=== PATIENT | male | born 1945 | race Caucasian/White ===

== ENCOUNTER 2019-06-20 05:25 | Inpatient (IN) | payer OTHER ==
--- NOTE | 2019-06-07 13:09 | HP ---
PREOPERATIVE HISTORY AND PHYSICAL: DATE OF ADMISSION/SURGERY: 06/20/19 DATE OF OFFICE VISIT: 06/07/19 ATTENDING PHYSICIAN: Dr. Isaiah Fung.* (DICTATED BY CARLA ZUNIGA) SURGERY SCHEDULED: Left total knee arthroplasty. CHIEF COMPLAINT: Left knee pain. HISTORY OF PRESENT ILLNESS: Mr. Nagel is a 73-year-old male with ongoing left knee pain. He has tried physical therapy and uses a regular aspirin twice daily for inflammatory pain. He has difficulty ambulating up and down stairs and can only walk 2 to 3 blocks without needing to rest due to the knee pain. His plain films reveal advanced degenerative changes in the medial compartment. He now elects to proceed with left total knee arthroplasty, which is scheduled with Dr. Fung 06/20/19. PAST MEDICAL HISTORY: Significant for type 2 diabetes mellitus. 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 MEDICATIONS: 1. Metformin 750 mg p.o. b.i.d. 2. Regular strength aspirin 325 p.o. b.i.d. 3. Glucosamine/chondroitin sulfate. 4. Multivitamin. 5. Vitamin D. 6. Atorvastatin. ALLERGIES: No known drug allergies. FAMILY HISTORY: Significant for his father having endocarditis and a stroke. Brother with a history of prostate cancer. SOCIAL HISTORY: The patient lives with his spouse. He works at [employer] in the [place] department. No cigarette/tobacco use. Denies use of alcohol. He is left-hand dominant. REVIEW OF SYSTEMS: The patient denies recent loss of consciousness, lightheadedness, dizziness, shortness of breath, chest pain, palpitations, gastrointestinal, genitourinary problems. There is no history of OH, phlebitis , or pulmonary embolism. PHYSICAL EXAMINATION GENERAL: He is alert and oriented x3, in no acute distress. Pleasant and cooperative. VITAL SIGNS: Height 73.5 inches tall, weight 215, BP 136/78, temperature 98.2. HEENT: PERRLA, EOMI. LUNGS: Clear to auscultation without wheeze. HEART: Regular rate and rhythm. No murmur auscultated. ABDOMEN: Nontender, nondistended. Normoactive bowel sounds x4 quadrants. EXTREMITIES: The left knee shows no open lesions or excoriations. His motion is limited from roughly -3 degrees to 110 degrees. There is no varus or valgus instability. No warmth or erythema. He has tenderness along the medial joint line. His calf is soft and nontender. He has active dorsiflexion of the left ankle. He has a 2+ pedal pulse. DIAGNOSTIC STUDIES: Plain films that were done at his last office visit revealed [id number] medial arthritis of the left knee joint. IMPRESSION: Advanced osteoarthritis of left knee. PLAN: The patient has elected to proceed with left total knee arthroplasty, which is scheduled with Dr. Isaiah Fung on 06/20/19 at [facility]. Risks and benefits of the procedure were fully discussed by Dr. Fung at his office visit today and he elected to proceed. He will discontinue his aspirin 1 week prior to surgery. He will follow up in 10 to 14 days postoperatively. CARAL ZUNIGA [id number]/[facility] #: [id number] LEIGH
[~2019-06-20 05:25] MED LIST: Buffered Lidocaine 1% SYRIN* 1 ML/SYRINGE INTRADERM ONE; Lactated Ringers 1000 ML Bag* 1,000 ML IV SCH; Tranexamic Acid 1,000 MG in NS 0.9% 50 ML* (outpatient use) IV SCH
--- OUTSIDE RECORDS SUMMARY | 2019-06-20 05:28 | XMS REPORT | Continuity of Care Document ---
:1945 External Reference #:[id number] Author Name Isaiah Fung M.D. 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 Medicine Problems Description No Information Available Social History Type Date Description Comments Sex Unknown ETOH Use Denies alcohol use Tobacco Use Start: Unknown Patient has never smoked Smoking Status Reviewed: 05/15/19 Patient has never smoked Exercise Type/Frequency Exercises regularly Allergies, Adverse Reactions, Alerts Description No Known Drug Allergies Medications Active Medications SIG Qnty Indications Ordering Provider Date Metformin HCL take one tablet Unknown 1000mg by mouth twice a Tablets day Aspirin Adult 2 Daily Unknown 325mg Tablets Immunizations Description No Information Available Vital Signs Date Vital Result Comment 05/15/2019 3:28pm Height 73.5 inches 6'1.50" Weight 215.00 lb Heart Rate 78 /min Body Temperature 98.3 F O2 % BldC Oximetry 97 % BMI (Body Mass Index) 28.0 kg/m2 Results Description No Information Available Procedures Description No Information Available Medical Devices Description No Information Available Encounters Type Date Location Provider Dx Diagnosis Office Visit 05/15/2019 Orthopedic Isaiah Fung M.D. M17.12 Unilateral primary 3[facility], left knee Assessments Date Code Description Provider 05/15/2019 M17.12 Unilateral primary osteoarthritis, left knee Isaiah Fung M.D. Plan of Treatment Future Appointment(s):06/07/2019 10:45 am - Isaiah Fung M.D. at [facility]06/20/2019 7:30 am - Isaiah Fung M.D. at [facility]Mary Carmen05/15/2019 - Isaiah Fung M.D.M17.12 Unilateral primary osteoarthritis, left knee Functional Status Description No Information Available Mental Status Description No Information Available Referrals Description No Information Available
--- OUTSIDE RECORDS SUMMARY | 2019-06-20 05:28 | XMS REPORT | Continuity of Care Document ---
:1945 External Reference #:[id number] Author Name Tino Goodrich M.D. Address [address] [facility] [place] [address] Care Team Providers Name Role Phone Michelle Sutton - Pediatric Care Team Information Bereavement Counselor Unavailable Dermatology Marilia Cavazos M.D. - Family Care Team Information Bereavement Counselor Medicine Problems Active Problems Provider Date Type 2 diabetes mellitus Onset: Hypercholesterolemia Onset: History of malignant neoplasm of prostate Onset: Malignant melanoma of skin Onset: Nuclear senile cataract Tino Goodrich M.D. Onset: 05/14/2015 Vitreous degeneration Tino Goodrich M.D. Onset: 05/14/2015 Tinnitus Onset: Social History Type Date Description Comments Sex Unknown ETOH Use Occasionally consumes alcohol Recreational Drug Use Denies Drug Use Tobacco Use Start: Unknown Patient has never smoked Smoking Status Reviewed: 06/06/19 Patient has never smoked Allergies, Adverse Reactions, Alerts Active Allergies Reaction Severity Comments Date NKDA 05/14/2015 Hazelnuts 05/24/2018 Medications Active Medications SIG Qnty Indications Ordering Provider Date Atorvastatin Calcium Anayeli Nolasco M.D. 20mg Tablets Metformin HCL 1500 mg per day Unknown 1000mg Tablets SF 5000 Plus Unknown 1.1% Cream Aspirin 2 tabs by mouth Unknown 325mg Tablets every day Lutein Tino Goodrich 40mg Capsules M.DMary Carmen Multiple Vitamins Unknown Tablets Vitamin D3 Unknown 1000Unit Capsules Glucosamine Chondroitin Unknown Complex Capsules Lipoflavonoid Unknown Tablets Immunizations Description No Information Available Vital Signs Description No Information Available Results Description No Information Available Procedures Description No Information Available Medical Devices Description No Information Available Encounters Description No Information Available Assessments Date Code Description Provider 06/06/2019 E11.9 Type 2 diabetes mellitus without Tino Goodrich M.D. complications 06/06/2019 H25.13 Age-related nuclear cataract, bilateral Tino Goodrich M.D. 06/06/2019 H43.813 Vitreous degeneration, bilateral Tino Goodrich M.D. Plan of Treatment Future Appointment(s):06/10/2020 1:45 pm - Tino Goodrich M.D. at Tino Goodrich MD, 06/06/2019 - Tino Goodrich M.D.E11.9 Type 2 diabetes mellitus without complicationsComments:Smoking can increase the risk of developing or worsening any eye related disease, as well as affect your overall health. If you are a smoker, we strongly recommend that you quit.If you are not a smoker, we strongly recommend that you do not start. You have diabetes. I do not detect any changes in both of your retinas from diabetes at this time. Proper control of your diabetes is important for the health of your eyes. Changes in your eyes from diabetes can happen without symptoms, so it is important that you have your eyes examined. Dr. Goodrich has sent a report to your primary care doctor, lettingthem know there is no damage from the Diabetes in your eyes.Follow up:1 Year Follow Up You can expect to have your eyes dilated at your next visit. If Dr. Goodrich orders any additional testing, it may require extra time. We recommend that you bring sunglasses, as dilationdrops often make you light sensitive until they wear off. We always recommend you bring someone to drive you home if you are uncomfortable driving with your eyes dilated. If you have any questions before your next visit, feel free to call our office at .H25.13 Age-related nuclear cataract, bilateralComments:You have been diagnosed with cataracts. If you are happy with your vision as it is now, then we willsee you at your next scheduled appointment. If you feel like your vision is getting worse before your scheduled appointment, please call Lily at [phone].Z43.524 Vitreous degeneration, bilateralComments:You have a Posterior Vitreous Detachment. If you have any changes in your floaters or flashing lights, please contact this office. Functional Status Description No Information Available Mental Status Description No Information Available Referrals Description No Information Available
[2019-06-20] MEDS ORDERED: ceFAZolin 2 GM in NS PREMIX(*) 2 GM/100 ML BAG IVPB ONE (06:33)
[2019-06-20] MEDS ORDERED: Buffered Lidocaine 1% SYRIN* 1 ML/SYRINGE INTRADERM ONE (06:33)
[2019-06-20] MEDS ORDERED: ROPIVACAINE 5 MG/ML 30 ML BTL (0.5%) ONE (07:24)
[2019-06-20] MEDS ORDERED: fentaNYL* 50 MCG/ML 2 ML VIAL (100 MCG VIAL) ONE (07:29)
[2019-06-20] MEDS ORDERED: Midazolam* 1 MG/ML 5 ML VIAL (5 MG) ONE (07:29)
[2019-06-20] MEDS ORDERED: Bupivacaine 0.5% W/EPI SDV* 10 ML VIAL INJ ONE (07:41)
[2019-06-20] MEDS ORDERED: Bupivacaine 0.5% SDV PF* 30ML VIAL ONE (08:07)
[2019-06-20] MEDS ORDERED: Propofol* 10 MG/ML 20 ML BTL ONE ×2 (08:07→09:19)
[2019-06-20] MEDS ORDERED: Ondansetron INJ* 2 MG/ML VIAL IV PRN ×2 (10:45→10:49)
[2019-06-20] MEDS ORDERED: Acetaminophen TAB* 325 MG PO PRN (10:45)
[2019-06-20] MEDS ORDERED: HYDROcodone/ACETAMIN 5-325 MG* 1 TAB PO PRN (10:45)
[2019-06-20] MEDS ORDERED: HYDROmorphone INJ1* 1 MG/ML SYRINGE IV PRN (10:45)
[2019-06-20] MEDS ORDERED: Naloxone* 0.4 MG/ML 1 ML VIAL IV PRN (10:45)
[2019-06-20] MEDS ORDERED: Magnesium Hydroxide LIQ* 30 ML UDC PO PRN (10:49)
[2019-06-20] MEDS ORDERED: Ondansetron ODT TAB* 4 MG PO PRN (10:49)
[2019-06-20] MEDS ORDERED: Morphine INJ* 2 MG/ML 1 ML SYRINGE (TWO MG - NEW SYRINGE VERSION) IV PRN (10:49)
[2019-06-20] MEDS ORDERED: diPHENhydraMINE IV* 50 MG/ML 1 ml VIAL (BENADRYL) IV PRN (10:49)
[2019-06-20] MEDS ORDERED: diPHENhydraMINE PO* 25 MG PO PRN (10:49)
[2019-06-20] MEDS ORDERED: traMADol TAB* 50 MG PO SCH (11:00)
[2019-06-20] MEDS ORDERED: Dextrose 50% VIAL 50 ml IV PUSH PRN (11:02)
[2019-06-20] MEDS ORDERED: Acetaminophen TAB* 325 MG ONE (12:30)
[2019-06-20] MEDS ORDERED: traMADol TAB* 50 MG ONE (12:30)
[2019-06-20] MEDS: Lactated Ringers 1000 ML Bag* 1,000 ML IV SCH ×2 (13:03→23:03)
--- NOTE | 2019-06-20 14:22 | CONS ---
CC: Dr. Fung; Dr. Nolasco * CONSULTATION REPORT: DATE OF CONSULT: 06/20/19 PRIMARY CARE PROVIDER: Dr. Nolasco. ORTHOPEDIC SURGEON: Dr. Fung. REASON FOR CONSULTATION: Diabetic management in patient status post left total knee replacement. CHIEF COMPLAINT: Left knee pain. HISTORY OF PRESENT ILLNESS: Levi Nagel is a 74-year-old male with history of diabetes, controlled on metformin at a low dose for the past 3 years, who is status post elective left knee replacement surgery by Dr. Fung. Consultation was requested from the orthopedic service for Medicine to follow on the patient' s diabetic management. Currently, the patient is seen in the postoperative unit, feels well. His spinal anesthesia is slowly wearing down, but he still feels numbness in bilateral lower extremities. PAST MEDICAL HISTORY: 1. History of diabetes type 2, noninsulin dependent. 2. History of dyslipidemia. 3. History of left wrist melanoma excision in 2012. 4. History of robotic prostatectomy in 2007 with subsequent postoperative hernia repair in the same year. 5. Basal cell carcinoma in the past. 6. History of gallstone pancreatitis, status post cholecystectomy in the past. MEDICATIONS AT HOME: Include: 1. Metformin 750 mg b.i.d. 2. Multivitamin 1 tablet daily. 3. Lutein 40 mg daily. 4. Lipoflavonoid 2 tablets daily. 5. Glucosamine 2 capsules daily. 6. Vitamin D3 1000 units daily. 7. Lipitor 20 mg daily. 8. Aspirin 650 mg at bedtime. ALLERGIES: Hazelnuts. FAMILY HISTORY: Positive for father who in his 70s secondary to heart disease. Two children with history of schizophrenia. 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 He is and his is his surrogate. He denies any tobacco, alcohol, or drug use. REVIEW OF SYSTEMS: Please see history of present illness. All the remaining 12 systems were reviewed with the patient and were otherwise negative. PHYSICAL EXAM: Blood pressure of 119/62, heart rate of 51 and regular, respiratory rate 16, oxygen saturation 99% on 4 L of oxygen via nasal cannula, temperature 96.9. General: The patient is a very pleasant 74-year-old male who is in no acute distress. Alert, awake and oriented x3. HEENT: Head: Atraumatic, normocephalic. Eyes: Pupils are equal and reactive to light and accommodation. Oropharynx is clear. Mucosa moist. Neck: Supple. No JVD. No bruits bilaterally. Cardiovascular: Regular rate and rhythm. No murmur. Respiratory: Clear to auscultation bilaterally. Abdomen: Soft, nontender. Bowel sounds are present in all 4 quadrants. Extremities: There is no edema. Pulses are +2 bilaterally. No clubbing or cyanosis. The left knee is wrapped in postoperative dressing in place; they were not unwrapped during the evaluation. Neurologically, cranial nerves II through XII grossly intact. Motor strength is 5/5 bilaterally. Sensation is diminished in bilateral lower extremities after spinal anesthesia. DIAGNOSTIC STUDIES/LAB DATA: Laboratory Data: None at admission. ASSESSMENT AND PLAN: 1. In regards to the patient's postoperative management of this left knee surgery, I will defer that to Dr. Fung. He was already placed on Eliquis for DVT prophylaxis after orthopedic surgery. 2. In regards to the patient's diabetic management, his hemoglobin A1c was noted to be 6.6 in December 2018. It appears that the patient had been in very good control over the past 3 years. Metformin is going to be held while the patient is hospitalized. The patient is going to be placed on insulin sliding scale. He can be placed back on his metformin at discharge. 3. For DVT prophylaxis as mentioned above, Eliquis is going to be continued. 4. The patient's code status is full. His surrogate is his . Thank you very much for allowing our service to see your patient in consultation. We will see the patient on daily basis. TIME SPENT: Approximately 55 minutes were spent in the patient's consultation. [id number]/[facility] #: [id number] LEIGH
[2019-06-20] MEDS: Insulin LISPRO* 1 UNITS UNIT SUBCUT SCH ×3 (14:37→21:47)
[2019-06-20] MEDS: Acetaminophen TAB* 325 MG PO SCH ×2 (14:39→21:48)
[2019-06-20] MEDS: oxyCODONE TAB* 5 MG TAB PO PRN ×3 (14:41→23:03)
--- NOTE | 2019-06-20 15:30 | OP ---
CC: Dr. Nolasco * DATE OF OPERATION: 06/20/19 - ROOM #341 DATE OF : 45 SURGICAL CARE: Left knee. SURGEON: Isaiah Fung MD HARDWARE TEST ENGINEER: CARLA Khan PROFESSOR COMPUTER SCIENCE: Teresa Mejia, certified pharmacy tech. ANESTHESIOLOGIST: Dr. Arciniega. ANESTHESIA: Spinal and IV sedation and left adductor canal block PRE-OP DIAGNOSIS: Severe arthritis of the left knee especially the medial compartment with varus malalignment. POST-OP DIAGNOSIS: Severe arthritis of the left knee especially the medial compartment with varus malalignment. OPERATIVE PROCEDURE: Left total knee replacement. COMPONENTS: Tish Persona knee was utilized posterior stabilized type with a size 9 femur, a 35 patella, and an F tibia with a 10 articular surface. COMPLICATIONS: There were no complications. DRAINS: There were no drains. BLOOD LOSS: 200 mL. REPLACEMENT: Crystalloid fluids. The patient got tranexamic acid 1 g at the start of the case intravenously and perioperative prophylactic antibiotics as well. INDICATIONS: Severe arthritis of the knee. He has had increasing pain. There has been some increasing deformity and over the past year, his functioning has progressed to the point where he did not want to continue to live with this situation with limited walking and so much difficulty on stairs. DESCRIPTION OF PROCEDURE: The patient was brought to the operating room and placed on the operating room table in supine position following the administration of the anesthetic. The patient was returned to the supine position. A Cline catheter was inserted. The left proximal thigh was wrapped with a tourniquet and sealed off. The left leg was then given a preliminary chlorhexidine prep and a formal ChloraPrep from the tourniquet to the tips of the toes. After prepping, draping, and sealing off, we did our universal protocol timeout confirming Levi Nagel and the plan for left total knee replacement. We all agreed and we proceeded. The surgical care was done without the tourniquet until we got to the clean up and cementing phase of the case. The hip and left knee were acutely flexed with the left foot on a padded foot piece for most of the case. The skin incision went from 1 fingerbreadth proximal to the superior pole of the patella down to the medial aspect of the tibial tubercle. The knee was entered medial parapatellar. The quad tendon was divided at the junction of the rectus femoris and the vastus medialis, staying as close to vastus medialis muscle as possible. We had clear, goldish synovial fluid; it was not abundant. The anteromedial soft tissues on the tibia were elevated subperiosteally, going around to the deep MCL and then to the posteromedial corner of the knee. The remains of the anterior horn medial meniscus were carefully excised. The MCL was carefully preserved throughout the case. The patient had complete eburnation of bone, medial femoral condyle, medial tibial plateau, some translocation of the knee. There were degenerative changes laterally and patella as well. The patella was made so that it could be everted. The peripatellar synovectomy was completed including a lot of the infrapatellar fat pad. The intercondylar osteophytes were excised. The ACL and PCL were uplifted from their femoral origins. The tibia was made, so it could be subluxated forward from under the femur and the PCL was carefully excised. Great care was taken while working posteriorly, especially posterior to the PCL. Lateral meniscus was then carefully excised. The distal anterior femur was exposed subperiosteally for referencing and measuring. At this point , we had nice exposure. The proximal tibial cut was made first. Our goal with this cut was to have a tibial surface that would have a slight posterior slope and be perpendicular to the long axis of the tibia correcting the varus. The goal was to remove a few millimeters medially and 10 to 12 mm laterally. After this cut was completed, then the femoral intramedullary drill was utilized. The patient did have some flexion contracture, so the femoral cutting guide was placed on 1 and 6 degrees of valgus were chosen. The distal femoral cuts were completed and at this stage, we had nice ligamentous balance for a 10 block in extension. The femur was measured for a size 9. The anterior, posterior, and chamfering cuts were completed. We then finished removal of the medial meniscus carefully preserving the MCL, posterior osteophyte on the medial femoral condyle, the lateral meniscus and the PCL. At this stage, we had nice ligamentous balance in flexion, 90 degrees of flexion with a 10 mm block as well. The femur was then completed with the intercondylar cutout and the femur was then cleaned x6 with pulse saline, suctioned empty, and a femoral plug was inserted. The tibia was then completed for a size F. The knee was then articulated and extended with a size F tibia, 10 articular surface, and the 9 femur with full knee extension, stable ligaments in extension, stable ligaments in 90 degrees of flexion. The patella was then cut flat, a 35 was chosen, three drill holes were made, and these were undercut for optimal cement interdigitation and a lateral release was not necessary. The leg was then exsanguinated with tourniquet. The tourniquet elevated to 275. The knee was then cleaned entirely in extension with pulsed saline irritation. Then the knee was cleaned in flexion all the bony surfaces with pulse saline. Each surface was dried. The cement was mixed and the components were cemented into position, patella, followed by tibia, followed by femur. Each was impacted , excess cement was removed, and the knee was articulated and extended during the final hardening. The tourniquet was then deflated. The pericapsular tissues were infiltrated with Marcaine with epinephrine postero-medially, medially, laterally. The knee was checked for any loose cement especially posteriorly and careful hemostasis was checked and achieved. We did not think drains were necessary. The knee was then closed, quadriceps tendon closed with interrupted #1 Vicryls in figure- of-eight fashion, the medial retinaculum #1, and then 0 Vicryls more distally. The deep fascia closed was interrupted with 0 Vicryl, the superficial subcu closed with 0 and then 3-0 Vicryls and then chris on the skin. We irrigated during the closure several times with pulse saline. After closure with chris , the skin was washed and dried and covered with Betadine soaked release followed by sterile gauze, sterile Webril, cryotherapy cuff, ABD pads, and then a 6-inch Albino bandage loosely applied. The patient was returned to the recovery room in stable and satisfactory condition, having tolerated the procedure very well. [id number]/[facility] #: [id number] LEIGH
--- NOTE | 2019-06-20 16:31 | PN ---
Progress Note - Progress Note Date of Service: 06/20/19 Note: Pt seen at bedside POD 0 sp LTK. He feels well without complaints, pain is well controlled. Denies CP, SOB, dizziness, nausea. Dressing CDI, cryo cuff in use, DF/ PF intact, Dp2+, sensation intact to light touch distally. He will start eliquis 2.5 mg po BID x 30 days post op tomorrow for DVT prophy, SCDs in place and early mobilization. Hosp mgmt DM2
[2019-06-20] MEDS: ceFAZolin 1 GM ADVAN(*) 1 GM in NS 0.9% 50 ML* 50 ML IVPB SCH (17:06)
[2019-06-20] MEDS: traMADol TAB* 50 MG PO SCH (18:41)
[2019-06-20] MEDS: Atorvastatin* 20 MG TAB PO SCH (18:48)
[2019-06-20] MEDS: Cyclobenzaprine TAB* 10 MG PO PRN (21:09)
[2019-06-20] MEDS: Docusate CAP* 100 MG PO SCH (21:46)
[2019-06-20] MEDS: Magnesium Hydroxide LIQ* 30 ML UDC PO SCH (21:46)
[2019-06-21] MEDS: traMADol TAB* 50 MG PO SCH ×4 (00:11→18:42)
[2019-06-21] MEDS: ceFAZolin 1 GM ADVAN(*) 1 GM in NS 0.9% 50 ML* 50 ML IVPB SCH ×2 (00:12→09:11)
[2019-06-21] MEDS: oxyCODONE TAB* 5 MG TAB PO PRN ×2 (04:06→22:46)
[2019-06-21 05:45] LABS: Hematocrit 36 % (42-52); Hemoglobin 12.7 g/dL (14.0-18.0); Platelet Count 141 10^3/uL (150-450)
[2019-06-21 06:13] LABS: BUN/Creatinine Ratio 15.1 (8-20); Calcium 7.9 mg/dL (8.6-10.3); EGFR African American 127.1 (>60); Potassium 4.1 mmol/L (3.5-5.0)
[2019-06-21] MEDS: Cyclobenzaprine TAB* 10 MG PO PRN (06:15)
[2019-06-21] MEDS: Acetaminophen TAB* 325 MG PO SCH ×3 (06:26→22:47)
--- NOTE | 2019-06-21 07:12 | PN ---
Progress Note - Progress Note Date of Service: 06/21/19 Note: POD #1 VSStable. X-ray left knee post op all satisfactory. Hct 36%. Awake, alert, cooperative and breathing easily. Left knee dressing is dry. Left PT pulse is 2 plus. Lifts left leg and moves left hip, knee, ankle and toes all directions. Surgery area care discussed. Imp: Stable. Plans: TKR rehab protocol and home when goals are reached.
[2019-06-21] MEDS: Cholecalciferol TAB* 1000 UNITS PO SCH (09:09)
[2019-06-21] MEDS: Vitamin THERAPEUTIC TAB PO SCH (09:09)
[2019-06-21] MEDS: Magnesium Hydroxide LIQ* 30 ML UDC PO SCH ×2 (09:10→22:45)
[2019-06-21] MEDS: Insulin LISPRO* 1 UNITS UNIT SUBCUT SCH ×4 (09:10→22:46)
[2019-06-21] MEDS: Docusate CAP* 100 MG PO SCH ×2 (09:10→22:45)
[2019-06-21] MEDS: Apixaban* 2.5 MG TAB PO SCH ×2 (09:10→22:46)
--- NOTE | 2019-06-21 13:58 | PN ---
Subjective Date of Service: 06/21/19 Interval History: Pt had ambulated this AM, post op pain is "as expected" Objective Active Medications: Acetaminophen (Tylenol Tab*) 975 mg PO Q8H [facility] Last Admin: 06/21/19 06:26 Dose: Not Given Apixaban (Eliquis*) 2.5 mg PO BID [facility] Last Admin: 06/21/19 09:10 Dose: 2.5 mg Atorvastatin Calcium (Lipitor*) 20 mg PO QPM [facility] Last Admin: 06/20/19 18:48 Dose: 20 mg Bisacodyl (Dulcolax Supp*) 10 mg LA DAILY PRN PRN Reason: CONSTIPATION Cholecalciferol (Vitamin D Tab*) 1,000 units PO QAM [facility] Last Admin: 06/21/19 09:09 Dose: 1,000 units Cyclobenzaprine HCl (Flexeril Tab*) 10 mg PO Q6H PRN PRN Reason: SPASMS Last Admin: 06/21/19 06:15 Dose: 10 mg Dextrose (Dextrose 50% Vial 50 Ml*) 25 ml IV PUSH .FOR FS < 60 - SS PRN PRN Reason: FS < 60 Diphenhydramine HCl (Benadryl Iv*) 25 mg IV Q6H PRN PRN Reason: PRURITIS Diphenhydramine HCl (Benadryl Po*) 25 mg PO Q6H PRN PRN Reason: PRURITIS Docusate Sodium (Colace Cap*) 100 mg PO BID [facility] Last Admin: 06/21/19 09:10 Dose: 100 mg Lactated Ringer's (Lactated Ringers 1000 Ml Bag*) 1,000 mls @ 100 mls/hr IV PER RATE [facility] Last Admin: 06/20/19 23:03 Dose: 100 mls/hr Insulin Human Lispro (Humalog*) 0 units SUBCUT ACHS [facility]; Protocol Last Admin: 06/21/19 09:10 Dose: 2 unit Lactulose (Lactulose*) 30 ml PO BID PRN PRN Reason: CONSTIPATION Magnesium Hydroxide (Milk Of Magnesia Liq*) 30 ml PO BID [facility] Last Admin: 06/21/19 09:10 Dose: 30 ml Magnesium Hydroxide (Milk Of Magnesia Liq*) 30 ml PO Q6H PRN PRN Reason: CONSTIPATION Morphine Sulfate (Morphine Inj (Syringe))*) 2 mg IV Q4H PRN PRN Reason: Pain - Unrelieved Multivitamins (Theragran Tab*) 1 tab PO DAILY [facility] Last Admin: 06/21/19 09:09 Dose: 1 tab Ondansetron HCl (Zofran Inj*) 4 mg IV Q6H PRN PRN Reason: NAUSEA Ondansetron HCl (Zofran Odt Tab*) 4 mg PO Q6H PRN PRN Reason: NAUSEA Oxycodone HCl (Roxycodone Tab*) 10 mg PO Q4H PRN PRN Reason: Pain - Breakthrough Last Admin: 06/21/19 04:06 Dose: 10 mg Tramadol HCl (Ultram*) 50 mg PO 0030,0630,1230,1830 [facility] Last Admin: 06/21/19 11:56 Dose: 50 mg Vital Signs - 8 hr 06/21/19 06/21/19 06/21/19 05:59 06:15 06:26 Temperature Pulse Rate Respiratory 17 17 Rate Blood Pressure (mmHg) O2 Sat by Pulse 95 Oximetry 06/21/19 06/21/19 06/21/19 07:51 08:15 09:00 Temperature 98.7 F Pulse Rate 67 Respiratory 12 16 16 Rate Blood Pressure 111/58 (mmHg) O2 Sat by Pulse 96 96 Oximetry 06/21/19 06/21/19 11:06 11:56 Temperature 99.8 F Pulse Rate 65 Respiratory 14 16 Rate Blood Pressure 129/57 (mmHg) O2 Sat by Pulse 96 Oximetry Oxygen Devices in Use Now: None Appearance: 74 yo M in nAD, AAOx3 Eyes: No Scleral Icterus, PERRLA Ears/Nose/Mouth/Throat: NL Teeth, Lips, Gums, Mucous Membranes Moist Neck: NL Appearance and Movements; NL JVP, Trachea Midline Respiratory: Symmetrical Chest Expansion and Respiratory Effort Cardiovascular: NL Sounds; No Murmurs; No JVD, RRR Abdominal: NL Sounds; No Tenderness; No Distention Lymphatic: No Cervical Adenopathy Extremities: No Clubbing, Cyanosis, - - left knee in post op dressings, not unwrapped Skin: No Nodules or Sclerosis Neurological: Alert and Oriented x 3, NL Muscle Strength and Tone Result Diagrams: 06/21/19 04:59 06/21/19 04:59 Assess/Plan/Problems-Billing Assessment: 74 yo M with h/o DM2, s/p elective left knee arthoplasty on 06/20/19 - Patient Problems (1) S/P total knee arthroplasty Comment: as per Dr. Fung (2) DM2 (diabetes mellitus, type 2) Comment: cont ISS, hold metformin for now, OK to restart it at discharge (3) DVT prophylaxis Comment: eliquis Status and Disposition: medicine consult
--- NOTE | 2019-06-21 14:15 | PN ---
Progress Note - Progress Note Date of Service: 06/21/19 SOAP: Subjective: Pt is doing well. Pain is controlled. Denies F/C, CP/SOB or calf pain. Reports fatigue after PT. Objective: PE- 74 y/o WDWN M NAD, A&Ox3 LLE- dressing changed, inc c/d/i with no sign of infection, calf soft NT, +DF/ PF ankle, +2 Dp pulse, SILT distally Vital Signs Temp Pulse Resp BP Pulse Ox 99.8 F 65 16 129/57 96 06/21/19 11:06 06/21/19 11:06 06/21/19 11:56 06/21/19 11:06 06/21/19 11:06 Laboratory Results - last 24 hr 06/20/19 06/20/19 06/21/19 17:03 20:59 04:59 Hgb 12.7 L Hct 36 L Plt Count 141 L MPV 8.0 Sodium Potassium Chloride Carbon Dioxide Anion Gap BUN Creatinine Est GFR ( Amer) Est GFR (Non-Af Amer) BUN/Creatinine Ratio Glucose POC Glucose (mg/dL) 199 H 231 H Calcium 06/21/19 06/21/19 04:59 11:56 Hgb Hct Plt Count MPV Sodium 137 Potassium 4.1 Chloride 105 Carbon Dioxide 29 Anion Gap 3 BUN 11 Creatinine 0.73 Est GFR ( Amer) 127.1 Est GFR (Non-Af Amer) 105.0 BUN/Creatinine Ratio 15.1 Glucose 156 H POC Glucose (mg/dL) 168 H Calcium 7.9 L Assessment: POD 1 S/P Left total knee replacement Plan: PT/OT- WBAT Cont tramadol and flexaril for pain Eliquis for dvt prophylaxis DC to home with outpatient PT tonight or tomorrow morning F/U with Dr. Fung 4-6 weeks post op
[2019-06-21] MEDS: Atorvastatin* 20 MG TAB PO SCH (17:42)
[2019-06-22] MEDS: traMADol TAB* 50 MG PO SCH ×3 (00:24→12:12)
[2019-06-22] MEDS: Acetaminophen TAB* 325 MG PO SCH ×2 (05:50→12:05)
[2019-06-22 07:15] LABS: Hematocrit 36 % (42-52); Hemoglobin 12.8 g/dL (14.0-18.0); Mean Platelet Volume 8.2 fL (7.4-10.4); Platelet Count 125 10^3/uL (150-450)
[2019-06-22] MEDS: oxyCODONE TAB* 5 MG TAB PO PRN (07:53)
[2019-06-22] MEDS: Apixaban* 2.5 MG TAB PO SCH (08:05)
[2019-06-22] MEDS: Insulin LISPRO* 1 UNITS UNIT SUBCUT SCH ×2 (08:05→12:12)
[2019-06-22] MEDS: Vitamin THERAPEUTIC TAB PO SCH (08:05)
[2019-06-22] MEDS: Docusate CAP* 100 MG PO SCH (08:05)
[2019-06-22] MEDS: Cholecalciferol TAB* 1000 UNITS PO SCH (08:05)
[2019-06-22] MEDS: Magnesium Hydroxide LIQ* 30 ML UDC PO SCH (08:07)
--- NOTE | 2019-06-22 09:14 | PN ---
Progress Note - Progress Note Date of Service: 06/22/19 Note: POD #2 100.1 temp. VSStable Making progress in PT. Left knee flexing 80 degrees. Left knee surgery checked by CARLA Carson and swelling, some discoloration , dry. All redressed. Awake, alert, breathing easily. Hct is 36 % again. Stable and home today.
[2019-06-22] MEDS ORDERED: Bisacodyl SUPP* 10 MG SUPP PR PRN (10:50)
[2019-06-22 11:44] VITALS: BP 154/74
--- NOTE | 2019-06-22 12:46 | DS ---
Orthopedic Discharge Summary - Discharge Summary Date of Admission:06/20/19 Date of Discharge: 06/22/2019 Date of Surgery: 06/20/2019 Attending Orthopedic Provider: Dr. Fung Pre-operative Diagnosis: Left knee osteoarthritis Operative Procedure: Left total knee arthroplasty Disposition of Patient: Home Condition of Patient: Good History: AMARIS HALE is a 74 year old M with years of increasingly severe left knee pain. Patient has failed conservative management and has elected to undergo a left total knee replacement. Hospital Course: AMARIS was admitted to [facility] on 06/20/19. Patient underwent a left total knee arthroplasty without complication followed by a brief recovery in PACU and transfer to the Short Stay Surgical Unit in stable condition. Our hospitalist service, physical therapy and occupational therapy also participated in this patients care. Post-op day 1: patient was alert and in no acute distress. Dressing was clean, dry and intact. Operative extremity dorsiflexion and plantarflexion intact, sensation intact to light touch distally, DP2+. Post-op day two: dressing was changed, incision was clean , dry and intact. Patient was deemed to be medically and orthopedically stable for discharge. Physical therapy goals were met. Home Medications Medication Instructions Recorded Confirmed Type Lutein 40 mg PO QAM 09/21/17 06/20/19 History Atorvastatin* [Lipitor 20 MG*] 20 mg PO QPM 06/07/19 06/20/19 History Cholecalciferol TAB* [Vitamin D 1,000 unit PO QAM 06/07/19 06/20/19 History TAB*] Glucosam/Chondr/Collagn/Hyalur 2 cap PO QAM 06/07/19 06/20/19 History [Glucosamine & Chondroitin Cap] Lipo Flavanoid 2 tab PO QAM 06/07/19 06/20/19 History Multivit-Min/FA/Lycopen/Lutein 1 each PO QAM 06/07/19 06/20/19 History [Centrum Silver Men Tablet] metFORMIN* [Glucophage 500 MG TAB 750 mg PO BID 06/07/19 06/20/19 History *] Acetaminophen TAB* [Tylenol TAB*] 975 mg PO Q8H tab 06/21/19 Rx Apixaban* [Eliquis*] 2.5 mg PO BID tab 06/21/19 Rx Cyclobenzaprine TAB* [Flexeril 10 10 mg PO Q6H PRN tab 06/21/19 Rx MG TAB*] Docusate CAP* [Colace Cap*] 100 mg PO TID cap 06/21/19 Rx traMADol TAB* [Ultram*] 50 mg PO 0030,0630,1230,1830 tab 06/21/19 Rx MDD 8 DISCHARGE INSTRUCTIONS: - Weight Bearing as tolerated - Continue physical therapy and occupational therapy exercises as shown. Wound Care: OK to shower, no bathing/ swimming/ submerging wound. Use gentle soap, pat dry. Cover with antibiotic ointment, gauze, SYLVAIN wrap. Call Orthopedic office for increased drainage, redness, increased pain, or fever. Go to ER with shortness of breath or chest pain. - Diet: Regular diet, increase fluids and fiber to prevent constipation. Continue to use stool softeners, call office if no bowel motion within 48 hours. Colace 100 mg take 1 tab three times a day as needed for constipation - Visiting home nurse to remove chris in 10-12 days and do wound checks. - Eliquis 2.5 mg take 1 tab every 12 hours x 30 days post op DO NOT take aspirin while on eliquis - Pain control: Tramadol 50 mg. Take 1 or 2 tabs every 6 hours for pain control as needed. maximum of 8 tabs per day. Take Tylenol 500 mg 2 tabs every 6 hours as needed for pain. maximum daily dose 4000 mg Cyclobenzaprine 10 mg take 1 every 8 hours as needed pain/muscle spasms - Antibiotics required prior to any dental work. FOLLOW UP: Follow up with Dr. Fung Within 4-6 weeks for your first post- operative appointment, sooner if you have any concerns. Call for appointment Please call our office with any questions or concerns ([phone]) Rx to [facility] [place] on 06/21
--- NOTE | 2019-06-28 11:05 | OP ---
OPERATIVE NOTE: ADDENDUM: In addition to the other anesthetic already described, the patient had a left adductor can al nerve block as part of his left knee anesthesia. [id number]/[facility] #: [id number]
== END 2019-06-22 14:57 | disposition home or self-care (01) | DRG 470 ==
LOC: AA 05:25 → SSU 10:50
PROVIDERS: ADMIT Family Medicine; ATTEND Orthopaedic Surgery
PROC: 0SRD0J9 Replacement of Left Knee Joint with Synthetic Substitute, Cemented, Open Approach (ICD-10-PCS; principal; 2019-06-20 07:30)
DX: M17.12 Unilateral primary osteoarthritis, left knee (principal); E11.9 Type 2 diabetes mellitus without complications; E78.00 Pure hypercholesterolemia, unspecified; E66.9 Obesity, unspecified; E78.5 Hyperlipidemia, unspecified; M21.162 Varus deformity, not elsewhere classified, left knee; Z82.3 Family history of stroke; Z82.49 Family history of ischemic heart disease and other diseases of the circulatory system; Z80.42 Family history of malignant neoplasm of prostate; Z85.820 Personal history of malignant melanoma of skin; Z85.46 Personal history of malignant neoplasm of prostate; Z90.49 Acquired absence of other specified parts of digestive tract; Z90.79 Acquired absence of other genital organ(s); Z68.29 Body mass index [BMI] 29.0-29.9, adult; Z91.018 Allergy to other foods; Z83.3 Family history of diabetes mellitus; Z80.0 Family history of malignant neoplasm of digestive organs; Z81.8 Family history of other mental and behavioral disorders; Z83.49 Family history of other endocrine, nutritional and metabolic diseases; Z79.84 Long term (current) use of oral hypoglycemic drugs
CPT/HCPCS: 36415; 80048; 85014; 85018; 85049; 88305; 88311; A9270-GY; C1776; G8978-GP-CJ; G8979-GP-CI; J0690; J2250; J2704; J2795; J3010; J3490